=== PATIENT | female | born 2005 | race African-American/Black ===

== ENCOUNTER 2024-11-09 22:00 | Emergency (ER) | payer SELFPAY ==
[2024-11-09] MEDS ORDERED: Dicyclomine 20 MG TAB ONE (22:30)
[2024-11-09 22:46] LABS: Bilirubin Neg (Negative); Blood, Urine Negative (Negative); Clarity Clear (Clear); Glucose, Urine (Dipstick) Normal (Negative); Ketone, Urine Negative (Negative); Leukocyte Negative (Negative); Nitrite Negative (Negative); Protein, Urine (Dipstick) 15 mg/dl (Neg-Trace); Urobilinogen Normal mg/dL (Less than 2)
[2024-11-09 22:48] LABS: Pregnancy Test - Urine (BHCG) Negative (Negative); Pregu Control Background? CLEAR/WHITE (CLR/WHITE); Pregu Control Bar Appear? YES (CONTROL BAR)
[2024-11-09 23:19] LABS: ALT (SGPT) 10 U/L (8-55); AST (SGOT) 14 U/L (5-34); Albumin 3.4 g/dL (3.5-5.0); Alkaline Phosphatase 61 U/L (40-100); Anion Gap 11 mmol/L (10-20); BUN (Urea Nitrogen) 11 mg/dL (7.0-18.7); Bilirubin, Total 0.4 mg/dL (0.2-1.2); Calc. Creatinine Clearance 0 mL/min (70-130); Calcium 8.6 mg/dL (7.8-10.44); Carbon Dioxide 25 mmol/L (22-29); Chloride 106 mmol/L (98-107); Estimated GFR 99; Globulin 4.2 g/dL (2.4-3.5); Glucose 93 mg/dL (70-105); Lipase 43 U/L (8-78); Potassium 3.5 mmol/L (3.5-5.1); Protein, Total 7.6 g/dL (6.0-8.3); Sodium 138 mmol/L (136-145)
[2024-11-09 23:20] LABS: #Basophils Less than 0.03 10x3/uL (0.0-0.2); #Eosinophils 0.18 10x3/uL (0.0-0.5); #Monocytes 0.41 10x3/uL (0.0-1.1); #Neutrophils 1.74 10x3/uL (1.5-8.4); %Basophils 0.2 % (0.0-2.0); %Eosinophils 4.1 % (0.0-6.0); %Lymphocytes 46.2 % (18.0-47.0); %Monocytes 9.4 % (0.0-10.0); %Neutrophils 39.9 % (40.0-75.0); Hematocrit 33.2 % (34.9-44.5); Hemoglobin 10.1 g/dL (12.0-15.5); Mean Corpuscular HGB CONC 30.4 g/dL (32.0-36.0); Mean Corpuscular Hemoglobin 23.4 pg (27.0-33.0); Mean Corpuscular Volume 76.9 fL (81.6-98.3); Mean Platelet Volume 8.1 fL (7.4-10.4); Platelet Count 336 10x3/uL (150-450); RBC Distribution Width 18.5 % (11.5-14.5); Red Blood Cell (RBC) Count 4.32 10x6/uL (3.90-5.03); White Blood Cell (WBC) Count 4.37 10x3/uL (3.5-10.5)
[2024-11-09 23:27] LABS: Bacteria/HPF 2+ HPF (None Seen); CAUTI Indications for Culture Pelvic or flank pain; RBC/HPF 0-3 HPF (0-3)
[2024-11-09 23:28] LABS: Urine Culture Reflex No No
[2024-11-09] MEDS ORDERED: Magnesium Citrate 300 ML BOT PO SCH (23:55)
== END 2024-11-10 00:03 | disposition home or self-care (01) ==
LOC: CSHERS 22:00
DX: K59.00 Constipation, unspecified (principal); N39.0 Urinary tract infection, site not specified
CPT/HCPCS: 36415; 74022; 80053; 81001; 81025; 83690; 85025; 99284